=== PATIENT | female | born 1975 | race Caucasian/White ===

== ENCOUNTER 2021-01-09 19:15 | Inpatient (IN) | payer BC, OTHER ==
[~2021-01-09] VITALS: Ht 167.6 cm; Wt 93.0 kg
[~2021-01-09 19:15] MED LIST: OXYCODONE HCL5 MG PO
[2021-01-09 21:13] LABS: HEMOGLOBIN 10.7 gm/dl (12.3-15.3); RED BLOOD COUNT 3.39 M/UL (4.00-5.10); WHITE BLOOD COUNT 13.6 K/UL (4.5-11.0)
[2021-01-10 08:15] LABS: HEMOGLOBIN 10.5 gm/dl (12.3-15.3); RED BLOOD COUNT 3.35 M/UL (4.00-5.10); WHITE BLOOD COUNT 10.2 K/UL (4.5-11.0)
[2021-01-10] MEDS ORDERED: CLINDAMYCIN HC150 MG PO ×2 (15:17→17:02)
[2021-01-10] MEDS ORDERED: GABAPENTIN100 MG PO (15:19)
[2021-01-10] MEDS ORDERED: NEURONTIN100 MG PO (15:19)
[2021-01-10] MEDS ORDERED: HYDROCODON-ACE1 EAC2 PO (15:20)
[2021-01-10] MEDS ORDERED: AMLODIPINE BESYL5 MG PO (15:20)
[2021-01-10] MEDS ORDERED: LEVOFLOXACIN250 MG PO (17:12)
[2021-01-10] MEDS ORDERED: CARVEDILOL25 MG PO (17:13)
[2021-01-10] MEDS ORDERED: TOUJEO MAX300 UNIT/1 SC (17:14)
[2021-01-10] MEDS ORDERED: HUMALOG100 UNIT/3 SC (17:20)
[2021-01-10] MEDS ORDERED: PRISTIQ ER100 MG PO (17:22)
[2021-01-10] MEDS ORDERED: HYDROXYZINE HCL25 MG PO (17:22)
[2021-01-10] MEDS ORDERED: MIRTAZAPINE15 MG PO (17:23)
[2021-01-10] MEDS ORDERED: LAMICTAL TAB 2525 MG PO (17:23)
[2021-01-10] MEDS ORDERED: ALLOPURINOL300 MG PO (17:24)
[2021-01-10] MEDS ORDERED: CYCLOBENZAPRINE5 MG PO (17:25)
[2021-01-10] MEDS ORDERED: DIPHENOXYLATE-1 EACH PO (17:26)
[2021-01-10] MEDS ORDERED: PROAIR DIGIHAL90 MCG INH (17:27)
[2021-01-10] MEDS ORDERED: FAMOTIDINE40 MG PO (17:28)
[2021-01-10] MEDS ORDERED: CETIRIZINE HCL10 MG PO (17:28)
[2021-01-10] MEDS ORDERED: FUROSEMIDE40 MG PO (17:29)
[2021-01-10] MEDS ORDERED: OMEPRAZOLE20 M1 PO (17:29)
[2021-01-10] MEDS ORDERED: LEVOTHYROXINE50 MCG PO (17:30)
[2021-01-10] MEDS ORDERED: ONDANSETRON ODT8 MG PO (17:30)
[2021-01-10] MEDS ORDERED: ALBUTEROL2.5 MG/3 M NEB (17:32)
[2021-01-10] MEDS ORDERED: AUGMENTIN 875-1 EACH PO (17:33)
[2021-01-10] MEDS ORDERED: GAS RELIEF125 M1 PO (17:34)
[2021-01-10] MEDS ORDERED: BEANO150 UNIT PO (17:37)
[2021-01-10] MEDS ORDERED: EYE ITCH RELIEF5 ML EYEBOTH (17:38)
[2021-01-10] MEDS ORDERED: DAILY VALUE1 EACH PO (17:39)
[2021-01-10] MEDS ORDERED: MUPIROCIN22 GM TOP (17:39)
[2021-01-10] MEDS ORDERED: VITAMIN D31250 MCG PO (17:44)
[2021-01-11 07:08] LABS: HEMOGLOBIN 9.9 gm/dl (12.3-15.3); RED BLOOD COUNT 3.31 M/UL (4.00-5.10); WHITE BLOOD COUNT 12.7 K/UL (4.5-11.0)
[2021-01-12 06:41] LABS: HEMOGLOBIN 8.1 gm/dl (12.3-15.3); WHITE BLOOD COUNT 9.6 K/UL (4.5-11.0)
[2021-01-12 06:44] LABS: RED BLOOD COUNT 2.76 M/UL (4.00-5.10)
--- NOTE | 2021-01-13 04:39 | NUR ---
PT WAS DISCOVERED TO HAVE EVEN MORE INCREASED SWELLING TO LEFT SIDE OF FACE, ESPECIALLY TO THE LEFT EYE. MD CAME TO FLOOR TO EVALUATE PT. PT STATED TO NOT GIVE SOLUMEDROL ORDERED PREVIOUSLY OVER PHONE. INSTEAD 20 MG IVP LASIX GIVEN PER VERBAL ORDER. MD WELL AWARE OF PT CONDITION AND PT STATES THAT SWELLING TO THE LEFT SIDE OF HER BODY IS NOT ABNORMAL FOR HER FROM TIME TO TIME, BUT IT IS USUALLY NOT THIS SEVERE. MD ALSO GAVE VERBAL ORDER TO HOLD FLUIDS.
[2021-01-13 07:37] LABS: HEMOGLOBIN 9.7 gm/dl (12.3-15.3); WHITE BLOOD COUNT 8.9 K/UL (4.5-11.0)
[2021-01-13 07:55] LABS: RED BLOOD COUNT 3.3 M/UL (4.00-5.10)
[2021-01-15 12:04] LABS: ADENOVIRUS F 40/41 Not Detected (Negative); ASTROVIRUS Not Detected (Negative); CAMPYLOBACTER Not Detected (Negative); CLOSTRIDIUM DIFFICILE TOX A/B Not Detected (Negative); CRYPTOSPORIDIUM Not Detected (Negative); E.COLI 0157 Not Detected (Negative); ENTAMOEBA HISTOLYTICA Not Detected (Negative); ENTEROAGGREGATIVE E.COLI (EAEC Not Detected (Negative); ENTEROPATHOGENIC E.COLI (EPEC) Not Detected (Negative); ENTEROTOXIGENIC E.COLI (ETEC) Not Detected (Negative); GIARDIA LAMBLIA Not Detected (Negative); NOROVIRUS GI/GII Not Detected (Negative); PLESIOMONAS SHIGELLOIDES Not Detected (Negative); ROTOVIRUS A Not Detected (Negative); SALMONELLA Not Detected (Negative); SAPOVIRUS Not Detected (Negative); SHIG/ENTEROINVAS.ECOLI (EIEC) Not Detected (Negative); SHIGA-LIK TOX.PRO.E.COLI (STEC Not Detected (Negative); VIBRIO Not Detected (Negative); VIBRIO CHOLERAE Not Detected (Negative); YERSINIA ENTEROCOLITICA Not Detected (Negative)
[2021-01-16 07:07] LABS: RED BLOOD COUNT 3.01 M/UL (4.00-5.10)
[2021-01-16 07:08] LABS: WHITE BLOOD COUNT 5.4 K/UL (4.5-11.0)
[2021-01-17 06:36] LABS: HEMOGLOBIN 8.8 gm/dl (12.3-15.3); RED BLOOD COUNT 2.97 M/UL (4.00-5.10); WHITE BLOOD COUNT 6.2 K/UL (4.5-11.0)
[2021-01-18 08:36] LABS: HEMOGLOBIN 9.4 gm/dl (12.3-15.3); RED BLOOD COUNT 3.13 M/UL (4.00-5.10); WHITE BLOOD COUNT 5.7 K/UL (4.5-11.0)
[2021-01-19 07:36] LABS: HEMOGLOBIN 9.3 gm/dl (12.3-15.3); RED BLOOD COUNT 3.09 M/UL (4.00-5.10)
[2021-01-20 08:28] LABS: HEMOGLOBIN 10.4 gm/dl (12.3-15.3); WHITE BLOOD COUNT 4.8 K/UL (4.5-11.0)
[2021-01-20 08:29] LABS: RED BLOOD COUNT 3.47 M/UL (4.00-5.10)
--- NOTE | 2021-01-20 15:23 | NUR ---
WENT TO HOOK PT ABX UP TO PORT IN R CHEST WALL. PT HAD DEACCESSED PORT ON HER OWN AND PLACED THE GUERRERO NEEDLE INSIDE OF HER BREAD ROLL ON HER LUNCH TRAY. I CLEANED THE SITE AND REACCESSED THE PORTICATH WITH A 20G X 0.75IN GUERRERO NEEDLE AND COVERED WITH A TEGADERM. PT WAS EDUCATED ON THE IMPORTANCE OF LEAVING THE PORT ALONE TO AVOID RISK OF INFECTION. JOSÉ MIGUEL.
--- NOTE | 2021-01-20 15:59 | NUR ---
NOTIFIED DR COLLIER THAT WE WERE UNABLE TO OBTAIN PT TEMP. PT HAS RECTAL TUBE AND UNABLE TO OBTAIN RECTAL TEMP WELL. PT ARMS PHYSCIALLY COLD TO THE TOUCH. LING HUGGER WAS PLACED ON PT. WILL RECHECK TEMP Q30M UNTIL OBTAINED. STATED TO CONTINUE TO MONITOR TEMP AND BP CLOSELY AND LET HIM KNOW. BP IS WNL AT THIS TIME IS 108/68. AWARE.
--- NOTE | 2021-01-20 17:42 | NUR ---
AT BEDSIDE TO SEE PT. STILL UNABLE TO OBTAIN TEMP EVEN AFTER LING HUGGER. I WENT TO ER TO GET FOREHEAD THERMOMETER. IT READ 96.0. AWARE.
--- NOTE | 2021-01-20 18:26 | NUR ---
REPORT GIVEN TO DONALD ON PCU AFTER HOUSE BEING NOTIFIED OF PT NEED FOR PCU TRANSFER. MD STILL AT BEDSIDE. PT AROUSABLE BY NOT ORIENTED. TEMP REMAINS LOW.
--- NOTE | 2021-01-20 21:05 | NUR ---
DR. COLLIER ARRIVED TO FLOOR AT 1850. PATIENT WAS HYPOTHERMIC WITH A BLADDER TEMP OF 82.0. WHILE ROLLING THE PATIENT ON HER SIDE, THE PATIENT'S HEART RATE DROPPED TO 20 AND O2 DROPPED TO 70'S. MD AWARE AND PRESENT IN THE ROOM WHEN IT HAPPENED. PATIENT IS LETHARGIC AND DOES NOT RESPOND TO STIMULI. MD AWARE. MD ORDERED HEAD CT AND GAVE ORDERS TO WAIT UNTIL PATIENT IS MORE STABLE BEFORE TAKING HER TO CT.
[2021-01-21 02:41] LABS: HEMOGLOBIN 9.2 gm/dl (12.3-15.3); WHITE BLOOD COUNT 4.4 K/UL (4.5-11.0)
[2021-01-21 02:45] LABS: RED BLOOD COUNT 3.07 M/UL (4.00-5.10)
[2021-01-22 02:41] LABS: HEMOGLOBIN 8.6 gm/dl (12.3-15.3); RED BLOOD COUNT 2.85 M/UL (4.00-5.10)
[2021-01-22 02:42] LABS: WHITE BLOOD COUNT 7.2 K/UL (4.5-11.0)
[2021-01-23 03:38] LABS: HEMOGLOBIN 8.7 gm/dl (12.3-15.3)
[2021-01-23 04:06] LABS: WHITE BLOOD COUNT 10.9 K/UL (4.5-11.0)
--- NOTE | 2021-01-23 19:26 | NUR ---
1120 TRIALYSIS CATHETER PLACED TO LEFT IJ BY DR HOOD. PATIENT TOLERATED WELL.
[2021-01-24 08:56] LABS: HEMOGLOBIN 7.5 gm/dl (12.3-15.3)
[2021-01-24 09:02] LABS: RED BLOOD COUNT 2.49 M/UL (4.00-5.10); WHITE BLOOD COUNT 14.8 K/UL (4.5-11.0)
[2021-01-24 17:24] LABS: HEMOGLOBIN 7.1 gm/dl (12.3-15.3); RED BLOOD COUNT 2.24 M/UL (4.00-5.10); WHITE BLOOD COUNT 10.8 K/UL (4.5-11.0)
[2021-01-24 22:17] LABS: HEMOGLOBIN 6.8 gm/dl (12.3-15.3)
[2021-01-25 01:30] LABS: RED BLOOD COUNT 2.08 M/UL (4.00-5.10)
[2021-01-25 01:34] LABS: WHITE BLOOD COUNT 14.1 K/UL (4.5-11.0)
[2021-01-25 01:35] LABS: HEMOGLOBIN 6.5 gm/dl (12.3-15.3)
[2021-01-25 13:18] LABS: HEMOGLOBIN 7.4 gm/dl (12.3-15.3)
--- NOTE | 2021-01-25 14:44 | NUR ---
SPOKE WITH DR. NGUYỄN. PER THE PATIENTS FAMILY REQUEST, CODE STATUS IS NOW DNR. FAMILY WANTS TO TERMINALLY WEAN AND MAKE HER COMFORT MEASURES. AMOL NOTIFIED PER PROTOCOL. PT RULED OUT FOR ORGAN AND TISSUE DONATION AT THIS TIME.
--- NOTE | 2021-01-25 15:30 | NUR ---
1300- PT BATHED AND WOUND DRESSINGS CHANGED. WET TO DRY DRESSING PLACED ON PRESSURE ULCER TO RIGHT BUTTOCK.
--- NOTE | 2021-01-25 17:57 | NUR ---
PER ORDER. PT EXTUBATED FOR COMFORT MEASURES AT 1755. 2L NC PLACED ON PT. FENTANYL INFUSING FOR PT COMFORT. WILL CONTINUE TO MONITOR.
--- NOTE | 2021-01-25 18:54 | NUR ---
AT 1830 THE PT FOUND TO BE ASYSTOLE ON ON MONITOR. NO PULES FELT, NOR HEART TONES, NOT BREATH SOUNDS PER 2 RN. FAMILY NOTIFIED.
--- NOTE | 2021-01-25 19:31 | NUR ---
POST MORTEM CARE COMPLETED ON PT, LINENS CHANGED. DUQUE AND RECTAL TUBE REMOVED. CENTRAL LINE, RIGHT CHEST WALL ELVIS CATH, 22G RW, AND 20 RFA IV REMOVED.
== END 2021-01-25 18:30 | disposition expired | DRG 862 ==
LOC: ER1 19:15 → PROG CARE 01-10 02:11 → CCU 01-10 02:11 → CDU 01-10 02:11 → M/S 01-10 02:11 → PROG CARE 01-20 18:49 → CCU 01-23 10:31
PROVIDERS: Internal Medicine; Internal Medicine Hematology & Oncology; Internal Medicine Nephrology; Physician Assistant; Physician Assistant Medical; Registered Nurse; Surgery; ADMIT Internal Medicine
PROC: 3E033XZ Introduction of Vasopressor into Peripheral Vein, Percutaneous Approach (ICD-10-PCS; principal; 2021-01-23)
PROC: 0BH17EZ Insertion of Endotracheal Airway into Trachea, Via Natural or Artificial Opening (ICD-10-PCS; 2021-01-23)
PROC: 5A1945Z Respiratory Ventilation, 24-96 Consecutive Hours (ICD-10-PCS; 2021-01-23)
PROC: 0DH63UZ Insertion of Feeding Device into Stomach, Percutaneous Approach (ICD-10-PCS; 2021-01-23)
PROC: 3E0G76Z Introduction of Nutritional Substance into Upper GI, Via Natural or Artificial Opening (ICD-10-PCS; 2021-01-23)
PROC: 02HV33Z Insertion of Infusion Device into Superior Vena Cava, Percutaneous Approach (ICD-10-PCS; 2021-01-23)
PROC: B548ZZA Ultrasonography of Superior Vena Cava, Guidance (ICD-10-PCS; 2021-01-23)
PROC: 8E0ZXY6 Isolation (ICD-10-PCS; 2021-01-23)
PROC: XW033E5 Introduction of Remdesivir Anti-infective into Peripheral Vein, Percutaneous Approach, New Technology Group 5 (ICD-10-PCS; 2021-01-24)
PROC: 3E0333Z Introduction of Anti-inflammatory into Peripheral Vein, Percutaneous Approach (ICD-10-PCS; 2021-01-24)
PROC: 5A1D70Z Performance of Urinary Filtration, Intermittent, Less than 6 Hours Per Day (ICD-10-PCS; 2021-01-24)
PROC: 30233R1 Transfusion of Nonautologous Platelets into Peripheral Vein, Percutaneous Approach (ICD-10-PCS; 2021-01-25)
DX: T81.41XA Infection following a procedure, superficial incisional surgical site, initial encounter (principal); U07.1 COVID-19; A41.9 Sepsis, unspecified organism; Z66 Do not resuscitate; J12.82 Pneumonia due to coronavirus disease 2019; N17.0 Acute kidney failure with tubular necrosis; J80 Acute respiratory distress syndrome; G93.41 Metabolic encephalopathy; R65.21 Severe sepsis with septic shock; L02.31 Cutaneous abscess of buttock; Z16.21 Resistance to vancomycin; C90.00 Multiple myeloma not having achieved remission; E87.2 Acidosis; R18.8 Other ascites; D61.818 Other pancytopenia; L03.317 Cellulitis of buttock; E03.9 Hypothyroidism, unspecified; E11.65 Type 2 diabetes mellitus with hyperglycemia; G40.909 Epilepsy, unspecified, not intractable, without status epilepticus; D75.82 Heparin induced thrombocytopenia (HIT); E87.5 Hyperkalemia; R53.81 Other malaise; N76.0 Acute vaginitis; I12.9 Hypertensive chronic kidney disease with stage 1 through stage 4 chronic kidney disease, or unspecified chronic kidney disease; D63.1 Anemia in chronic kidney disease; E11.42 Type 2 diabetes mellitus with diabetic polyneuropathy; K52.9 Noninfective gastroenteritis and colitis, unspecified; E11.22 Type 2 diabetes mellitus with diabetic chronic kidney disease; N18.30 Chronic kidney disease, stage 3 unspecified; F17.210 Nicotine dependence, cigarettes, uncomplicated; L89.222 Pressure ulcer of left hip, stage 2; W01.0XXA Fall on same level from slipping, tripping and stumbling without subsequent striking against object, initial encounter; Y92.231 Patient bathroom in hospital as the place of occurrence of the external cause; Z79.4 Long term (current) use of insulin; Z98.51 Tubal ligation status; Z90.49 Acquired absence of other specified parts of digestive tract; Z98.890 Other specified postprocedural states; Z88.2 Allergy status to sulfonamides; Z88.8 Allergy status to other drugs, medicaments and biological substances; Z91.041 Radiographic dye allergy status; Z82.49 Family history of ischemic heart disease and other diseases of the circulatory system; Z98.84 Bariatric surgery status
CPT/HCPCS: 31500; 36415; 36430; 36600; 70450; 71045; 73502; 73560; 80048; 80053; 80076; 81001; 82009; 82140; 82436; 82550; 82553; 82570; 82607; 82728; 82747; 82803; 82962; 83540; 83550; 83605; 83921; 84133; 84156; 84300; 84439; 84443; 84484; 85007; 85014; 85018; 85025; 85027; 85045; 85379; 85384; 85610; 85730; 86850; 86900; 86901; 86920; 87040; 87070; 87077; 87186; 87205; 87507; 93005; 93970; 94002; 94003; 94640; 94664; 94760; 96365; 96375; 97161; 97530; 99284; A6212; C1752; G0378; J0330; J0878; J0883; J1100; J1450; J1644; J1652; J1940; J2020; J2185; J2270; J2405; J2704; J2930; J3010; J7030; J7050; J7070; P9016; P9047; U0002